=== PATIENT | female | born 1990 | race Caucasian/White ===

== ENCOUNTER → 2017-03-13 | Outpatient (CLI) | payer OTHER | END | disposition home or self-care (01) | LOC: C.PAPS 15:44 | PROVIDERS: ATTEND Obstetrics & Gynecology | DX: Z12.4 Encounter for screening for malignant neoplasm of cervix (principal) ==

== ENCOUNTER 2025-05-15 12:14 | Observation (INO) ==
--- NOTE | 2025-05-15 12:45 | Emergency Department Note ---
Impression & Plan Hydronephrosis, left, Left ureteral stone, Flank pain ED Provider Note NAME: MARIE OCHOA AGE: 34 SEX: F : 1990 ARRIVES VIA: Walk-In INFORMANT: Patient ED PROVIDER(S): Bhavin Chery DO CHIEF COMPLAINT: Left flank pain HPI: Patient is a 34-year-old female with a past medical history of renal colic who presents ER for left flank pain. This started on Monday. A couple days prior to this she notes that she did pass a kidney stone. Flank pain started on Monday and has been getting worse. Admits to some nausea and vomiting. Denies any headache or change in vision. No chest pain or shortness of breath. She denies any dysuria, urgency, or frequency but admits to some pressure when she feels like she has to urinate. She believes she has about a 7 mm stone as she did follow-up with Med. She sees [facility] urology and they referred her in here today as they could not see her. ADDITIONAL HISTORY OBTAINED: Per HPI Chronic Medical/Social Conditions Affecting Care: Per HPI PAST MEDICAL HISTORY:See Below PAST SURGICAL HISTORY:See Below FAMILY HISTORY:See Below SOCIAL HISTORY:See Below HOME MEDICATIONS:See Below ALLERGIES:See Below VITALS:See Below PHYSICAL EXAMINATION: GENERAL: Sitting up in bed, alert, moderate distress holding flank EYE EXAM: normal conjunctiva. OROPHARYNX: no exudate, no erythema, lips, buccal mucosa, and tongue normal and mucous membranes are moist LUNGS: Clear to auscultation. Normal chest wall mechanics HEART: no murmurs, S1 normal and S2 normal ABDOMEN: abdomen soft, non-tender, normo-active bowel sounds, no masses, no rebound or guarding. SKIN: no rashes and no bruising UPPER EXTREMITIES: upper extremities are grossly normal. LOWER EXTREMITIES: No pitting edema. NEURO EXAM: Normal sensorium, cranial nerves II-XII grossly intact, normal speech, no gross weakness of arms, no gross weakness of legs. MEDICAL DECISION MAKING: Patient is a 34-year-old female who presents ER for flank pain. IV was established and blood work was obtained. Labs show leukocytosis 11,000. No significant anemia. BMP with creatinine 1.25. LFTs bilirubin and lipase unremarkable. UA was repeated and showed no white cells to be consistent with an infection. was negative. Patient was given IV fluids, Toradol and morphine. Discussed case with urology and they will stent the patient tomorrow as she has tried oxycodone at home and has been unsuccessful to control the pain. Patient was agreeable. Updated bedside. Discussed case with the hospitalist for further evaluation management treatment. Consults/Care Managements Discussions: Per MDM Triage Nursing notes reviewed. Limited review of prior medical records performed Vital Signs: reviewed and remarkable for tachy Differential diagnosis: Differential diagnoses includes but is not limited to gastritis, peptic ulcer disease, GERD, gallbladder disease, pancreatitis, small bowel obstruction, appendicitis, diverticulitis, hernia, urinary tract infection, torsion, /ectopic (if female), perforation, trauma, infectious. ER treatment provided: See below Diagnostics interpreted by me include EKG and cardiac monitoring as listed below: -Cardiac Monitoring: An order was placed for continuous cardiac monitoring. The monitor shows a rate of 70 with sinus rhythm. -ECG: none -Laboratory studies:Interpreted by me as stated above in MDM and shown below. Imaging studies: Xrays: As interpreted by me:none CTs show: CT abdomen pelvis per my preliminary interpretation showed no obvious bowel obstruction CT of the pelvis per radiologist described above Procedures:none Critical Care: None Past Med/Surg History Problem List (Updated 05/15/25 @ 15:28 by DOREEN Collins) Flank pain Vitamin D deficiency Hydronephrosis, left Left ureteral stone Blood in urine RLQ abdominal pain Vaginal pain Irregular menses Medical History Hx of gout Arthritis GERD (gastroesophageal reflux disease) Thyroid nodule History of anemia Hyposomnia Anxiety and depression Kidney stone Migraine Asthma Surgical History History of cystoscopy History of surgery on lower extremity History of colonoscopy History of esophagogastroduodenoscopy (EGD) History of ERCP History of cholecystectomy History of myringotomy H/O tooth extraction History of ankle surgery S/P hip arthroscopy Family History Aunt Breast cancer Endometriosis Other Diabetes Heart disease No family history of adverse response to anesthesia Denies family history of Ovarian cancer Prostate cancer Myocardial infarction Colorectal cancer Social History (Reviewed 04/16/25 @ 12:19 by ADE Bar[place] Smoking Status: Never smoker Tobacco Type: Cigarettes Second Hand Exposure: No; Do You Dip or Chew Tobacco: No; Hx Alcohol Use: No Hx Substance Use: No Preferred Language: Nauruan Communication Ability: Effective Glove Finisher Required: No Beliefs That Will Affect Care: None Current Living Situation: Family Feels Safe at Home: Yes Assistive Devices: Contacts and Glasses Allergies Allergies Allergy/AdvReac Type Severity Reaction Status Date / Time zaleplon [From Sonata] Allergy Intermediate Headache/ra Verified 05/15/25 15:04 sh triamcinolone [From Nasacort] AdvReac Mild Dizziness Verified 05/15/25 15:04 Home Meds Home Medications Medication Instructions Recorded Confirmed ergocalciferol (vitamin D2) 50 mcg 50 mcg PO QAM 07/05/21 05/15/25 (2,000 unit) capsule bupropion HCl 150 mg 24 hr tablet, 150 mg PO QAM 05/22/24 05/15/25 extended release topiramate 100 mg tablet 100 mg PO HS 05/22/24 05/15/25 eszopiclone 3 mg tablet (Lunesta) 3 mg PO HS 08/16/24 05/15/25 modafinil 200 mg tablet 200 mg PO QAM 08/16/24 05/15/25 dicyclomine 10 mg capsule 10 mg PO TID PRN Pain 03/04/25 05/15/25 celecoxib 200 mg capsule 200 mg PO QAM 05/15/25 05/15/25 duloxetine 60 mg capsule,delayed 60 mg PO QAM 05/15/25 05/15/25 release famotidine 20 mg tablet 20 mg PO BID PRN Nausea and 05/15/25 05/15/25 Heartburn fluticasone propionate 115 2 inh inhalation BID 05/15/25 05/15/25 mcg-salmeterol 21 mcg/actuation HFA inhaler (Advair HFA) gabapentin 100 mg capsule 100 mg PO BID 05/15/25 05/15/25 hydroxyzine pamoate 25 mg capsule 25 mg PO BID 05/15/25 05/15/25 oxycodone 5 mg tablet 5 mg PO Q6H PRN Pain 05/15/25 05/15/25 tamsulosin 0.4 mg capsule (Flomax) 0.4 mg PO HS 05/15/25 05/15/25 Results & Data (ED) Vital Signs Vital Signs - 24 hr 05/15/25 12:26 05/15/25 15:25 05/15/25 15:27 Temperature 36.6 C Temperature Source Temporal Artery Scan Pulse Rate 101 H 72 Pulse Rate [Finger] 73 Respiratory Rate 18 16 16 Respiratory Effort / Characteristics Non-Labored Spontaneous Non-Labored Spontaneous Respiratory Depth Normal Normal Respiratory Pattern Regular Regular Blood Pressure 126/80 Blood Pressure [Right Arm] 125/73 Blood Pressure Mean 95 Blood Pressure Mean [Right Arm] 90 Pulse Oximetry 99 100 100 Oxygen Delivery Method Room Air Room Air Room Air Sepsis Recent Fever Within 48 Hours No Sepsis New/Unexplained Change in Mental Status N/A Sepsis Action Taken by Nursing No Action Required Laboratory Data 05/15/25 12:56 05/15/25 12:56 Lab Results 05/15/25 05/15/25 05/15/25 Range/Units 12:50 12:56 13:49 WBC 11.05 H (4.8-10.8) K/ul RBC 4.56 (4.20-5.40) M/uL Hgb 12.4 (12.0-16.0) g/dl Hct 37.1 (37.0-47.0) % MCV 81.4 (80.0-100.0) fL MCH 27.2 (25.0-34.0) pg MCHC 33.4 (32.0-36.0) g/dL RDW Std Deviation 39.5 (36.4-46.3) fL RDW Coeff of Niurka 13.4 (11.5-14.5) % Plt Count 389 (130-400) K/uL MPV 8.7 L (9.4-12.4) fL Immature Gran % (Auto) 1.0 % Neut % (Auto) 70.7 % Lymph % (Auto) 19.7 % Harlan % (Auto) 6.9 % Eos % (Auto) 1.2 % Baso % (Auto) 0.5 % Neut # (Auto) 7.82 H (1.40-6.50) K/uL Lymph # (Auto) 2.18 (1.20-3.40) K/uL Harlan # (Auto) 0.76 H (0.11-0.59) K/uL Eos # (Auto) 0.13 (0.00-0.50) K/uL Baso # (Auto) 0.05 (0.00-0.20) K/uL Immature Gran # (Auto) 0.11 (0.01-0.20) K/uL Sodium 137 (136-145) mmol/L Potassium 3.6 (3.5-5.1) mmol/L Chloride 104 (98-107) mmol/L Carbon Dioxide 26 (21-32) mmol/L Anion Gap 7 (3-11) BUN 19 (6-23) mg/dl Creatinine 1.25 H (0.6-1.2) mg/dl Est Cr Clr Drug Dosing 67.5 ml/min eGFR 57.64 BUN/Creatinine Ratio 15.2 (10-20) Glucose 94 (70-99(Fasting)) mg/dl Calcium 9.3 (8.6-10.3) mg/dl Total Bilirubin 0.4 (0.2-1.0) mg/dl AST 13 (13-39) U/L ALT 23 (7-52) U/L Alkaline Phosphatase 71 (34-104) U/L Total Protein 8.0 (6.0-8.3) gm/dl Albumin 4.1 (3.4-5.0) gm/dl Globulin 3.9 (2.5-4.0) gm/dl Albumin/Globulin Ratio 1.1 (0.9-2) Lipase 22 (11-82) U/L Urine Color Dark Yellow Yellow Urine Appearance Clear Clear (Clear) Urine pH 6.0 6.5 (4.5-7.5) Ur Specific [place] 1.027 1.014 (1.000-1.030) Urine Protein 1+ H Negative (Negative) Urine Glucose (UA) Negative Negative (Negative) Urine Ketones Trace H Negative (Negative) Urine Blood Trace H Negative (Negative) Urine Nitrite Negative Negative (Negative) Urine Bilirubin Negative Negative (Negative) Urine Urobilinogen Negative Negative (Negative) Ur Leukocyte Esterase 1+ H Trace H (Negative) Urine WBC (Auto) 11-20 H 0-5 (0-5) /hpf Urine RBC (Auto) 6-10 H 0-2 (0-2) /hpf U Hyaline Cast (Auto) 0-2 0-2 (0-2) /lpf U Epithel Cells (Auto) 3-5 H 0-2 (0-2) /hpf Urine Bacteria (Auto) 1+ H None Seen (None Seen) Urine Test Negative (Negative) Urine Comment Administered Medications Discontinued Medications Sodium Chloride (Nss) 1,000 mls @ 999 mls/hr IV .Q1H1M ONE Stop: 05/15/25 13:42 Last Infusion: 05/15/25 14:41 Dose: Infused Documented By: Admin: 05/15/25 13:00 Dose: 999 mls/hr Documented By: Ketorolac Tromethamine (Ketorolac Tromethamine 15 Mg/Ml Vial) 15 mg IV NOW ONE Stop: 05/15/25 12:43 Last Admin: 05/15/25 13:01 Dose: 15 mg Documented By: Morphine Sulfate (Morphine Sulfate 4 Mg/Ml 1 Ml Carp\Vial) 4 mg IV NOW STA Stop: 05/15/25 12:43 Last Admin: 05/15/25 13:00 Dose: 4 mg Documented By: Morphine Sulfate (Morphine Sulfate 4 Mg/Ml 1 Ml Carp\Vial) 4 mg IV NOW STA Stop: 05/15/25 14:58 Last Admin: 05/15/25 15:27 Dose: 4 mg Documented By: TACHO Imaging Data Radiologist's Impression: Abdomen/Pelvis CT 05/15/25 12:[address] WITHOUT CONTRAST CT DOSE: 1425.6 mGy.cm HISTORY: l flank pain TECHNIQUE: Multiaxial CT images of the abdomen and pelvis were performed without contrast. A dose lowering technique was utilized adhering to the principles of ALARA. COMPARISON STUDY: 08/13/2024 FINDINGS: ABDOMEN: Gallbladder is surgically absent. Liver, spleen, pancreas, and adrenal glands have an unremarkable noncontrast appearance. No hydronephrosis at the right kidney. There is mild hydronephrosis at the left kidney. There is an 8 mm calculus proximal left ureter. No other ureteral calculi seen. There are a few tiny calculi in both kidneys. No abdominal aortic aneurysm. Pelvis: Uterus and adnexa are grossly unremarkable. Urinary bladder is decompressed. No bowel inflammation or obstruction. No free fluid or free air. Normal appendix. Stable atrophy of the left psoas muscle. No enlarged adenopathy seen. Osseous structures: No acute osseous findings. IMPRESSION: 8 mm calculus proximal left ureter causes mild left hydronephrosis. ACT 112: Negative or not required by law. The above report was generated using voice recognition software. It may contain grammatical, syntax or spelling errors. Electronically signed by: Ehsan Garcia M.D. 05/15/2025 1:25 PM Discharge Plan Visit Data Chief Complaint: Kidney Stone Stated Complaint: PAIN KIDNEY STONES ED Provider: Bhavin Chery Discharge Problem: Hydronephrosis, left, Left ureteral stone, Flank pain Condition: Fair Forms Stand Alone Forms: [facility] [place] [employer] Prescriptions Prescriptions: No Action ergocalciferol (vitamin D2) 50 mcg (2,000 unit) capsule 50 mcg PO QAM bupropion HCl 150 mg tablet extended release 24 hr 150 mg PO QAM topiramate 100 mg tablet 100 mg PO HS dicyclomine 10 mg capsule 10 mg PO TID PRN (Reason: Pain) celecoxib 200 mg capsule 200 mg PO QAM famotidine 20 mg tablet 20 mg PO BID PRN (Reason: Nausea and Heartburn) gabapentin 100 mg capsule 100 mg PO BID oxycodone 5 mg tablet 5 mg PO Q6H PRN (Reason: Pain) hydroxyzine pamoate 25 mg capsule 25 mg PO BID duloxetine 60 mg capsule,delayed release(DR/EC) 60 mg PO QAM fluticasone propion-salmeterol [Advair HFA] 115-21 mcg/actuation HFA aerosol inhaler 2 inh INHALATION BID tamsulosin [Flomax] 0.4 mg capsule 0.4 mg PO HS Rx Instructions: Start Date 05/14/25 x7 day supply modafinil 200 mg Tablet 200 mg PO QAM eszopiclone [Lunesta] 3 mg Tablet 3 mg PO HS Referrals Referrals: Ned Iqbal MD [Primary Care Provider] -
[2025-05-15] MEDS: MoRPHine SULFATE 4 MG/ML 1 ML CARP\\VIAL IV STA ×2 (13:00→15:27)
[2025-05-15] MEDS: SODIUM CHLORIDE 0.9% 1,000 ML IV ONE (13:00)
[2025-05-15] MEDS: KETOROLAC TROMETHAMINE 15 MG/ML VIAL IV ONE (13:01)
[2025-05-15 13:09] LABS: Hematocrit (blood only) 37.1 % (37.0-47.0); Hemoglobin 12.4 g/dl (12.0-16.0); Immature Granulocytes # (auto) 0.11 K/uL (0.01-0.20); Immature Granulocytes % (auto) 1.0 %; Mean Corpuscular Hemoglobin 27.2 pg (25.0-34.0); Mean Corpuscular Volume 81.4 fL (80.0-100.0); Platelet Count 389 K/uL (130-400); RDW Standard Deviation 39.5 fL (36.4-46.3); Red Blood Count 4.56 M/uL (4.20-5.40); White Blood Count 11.05 K/ul (4.8-10.8)
[2025-05-15 13:15] LABS: Appearance Urine Clear (Clear); Bacteria Urine Automated 1+ (None Seen); Cast Urine Automated 0-2 /lpf (0-2); Glucose Urine UA Negative (Negative)
--- NOTE | 2025-05-15 13:27 | CT Scan Report ---
ABDOMEN AND PELVIS CT WITHOUT CONTRAST CT DOSE: 1425.6 mGy.cm HISTORY: l flank pain TECHNIQUE: Multiaxial CT images of the abdomen and pelvis were performed without contrast. A dose lo wering technique was utilized adhering to the principles of ALARA. COMPARISON STUDY: 08/13/2024 FINDINGS: ABDOMEN: Gallbladder is surgically absent. Liver, spleen, pancreas, and adrenal glands have an unrema rkable noncontrast appearance. No hydronephrosis at the right kidney. There is mild hydronephrosis at the left kidney. There is an 8 mm calculus proximal left ureter. No other ureteral calculi seen. The re are a few tiny calculi in both kidneys. No abdominal aortic aneurysm. Pelvis: Uterus and adnexa are grossly unremarkable. Urinary bladder is decompressed. No bowel inflamm ation or obstruction. No free fluid or free air. Normal appendix. Stable atrophy of the left psoas mu scle. No enlarged adenopathy seen. Osseous structures: No acute osseous findings. IMPRESSION: 8 mm calculus proximal left ureter causes mild left hydronephrosis. ACT 112: Negative or not required by law. The above report was generated using voice recognition software. It may contain grammatical, syntax o r spelling errors. Electronically signed by: Ehsan Garcia M.D. 05/15/2025 1:25 PM
[2025-05-15 13:28] LABS: Alanine Aminotransferase 23.0 U/L (7-52); Albumin Globulin Ratio 1.1 (0.9-2); Alkaline Phosphatase 71.0 U/L (34-104); Anion Gap 7.0 (3-11); Bilirubin,Total 0.4 mg/dl (0.2-1.0); Blood Urea Nitrogen 19.0 mg/dl (6-23); Calcium 9.3 mg/dl (8.6-10.3); Carbon Dioxide 26.0 mmol/L (21-32); Chloride 104.0 mmol/L (98-107); Creatinine Clr Calc Pharmacy 67.5 ml/min; Globulin 3.9 gm/dl (2.5-4.0); Glucose 94.0 mg/dl (70-99(Fasting)); Lipase 22.0 U/L (11-82); Potassium 3.6 mmol/L (3.5-5.1); Sodium 137.0 mmol/L (136-145); Total Protein 8.0 gm/dl (6.0-8.3)
[2025-05-15 14:22] LABS: Appearance Urine Clear (Clear); Bacteria Urine Automated None Seen (None Seen); Cast Urine Automated 0-2 /lpf (0-2); Epithelial Cell Urine Auto 0-2 /hpf (0-2); Glucose Urine UA Negative (Negative); RBC Urine Automated 0-2 /hpf (0-2); WBC Urine Automated 0-5 /hpf (0-5)
--- NOTE | 2025-05-15 15:29 | History & Physical Report ---
Date of Service May 15, 2025 Assessment & Plan (1) Left ureteral stone: (2) Hydronephrosis, left: (3) Asthma: Plan 34 y/o with hx nephrolithiasis admitted with obstructing L ureteral stone, having worsened despite conservative management CT abd/pelvis - 8 mm stone prox L ureter with mild L hydronephrosis Urologist consulted and plans cystoscopy with stenting tomorrow Does not appear infected based on negative UA -IV fluids -flomax -avoiding more IV toradol since Cr up to 1.2, acetaminophen, morphine 2-4 mg IV if necessary for pain control -IV antiemetics if needed -NPO after midnight -follow up with Dr. Harris for nephrolithiasis - reviewed her last clinic note and the main risk factor is low fluid intake / urine output, advised normal dietary calcium and increased oral fluids for now # Asthma - not in exacerbation -continue advair, recent dose increase Continue other home meds for mood disorder, arthritis pain, insomnia: gabapentin topamax duloxetine, bupropion lunesta History of Present Illness Chief Complaint: Left flank pain Primary Care Provider: Ned Iqbal MD 34 y/o with nephrolithiasis came in to ED with renal colic. L flank pain started Monday. Seen at [facility], diagnosed with stone, and treated medically. Pain got worse today despite oral pain medicine so came in to ED. The ED consulted Urology who plans stenting procedure tomorrow. Pain is in left flank and severe. She had one emesis yesterday. Unrelieved by oral pain meds, but improved after 4 mg IV morphine. Not currently nauseated. Per my chart review: In 07/18 had laser lithotripsy of 10 mm L stone. She says no pain that time, presented with hematuria only Allergies Allergy/AdvReac Type Severity Reaction Status Date / Time zaleplon [From Sonata] Allergy Intermediate Headache/ra Verified 05/15/25 15:04 sh triamcinolone [From Nasacort] AdvReac Mild Dizziness Verified 05/15/25 15:04 Home Medications Medication Instructions Recorded Confirmed Type ergocalciferol (vitamin D2) 50 mcg 50 mcg PO QAM 07/05/21 05/15/25 History (2,000 unit) capsule bupropion HCl 150 mg 24 hr tablet, 150 mg PO QAM 05/22/24 05/15/25 History extended release topiramate 100 mg tablet 100 mg PO HS 05/22/24 05/15/25 History eszopiclone 3 mg tablet (Lunesta) 3 mg PO HS 08/16/24 05/15/25 History modafinil 200 mg tablet 200 mg PO QAM 08/16/24 05/15/25 History dicyclomine 10 mg capsule 10 mg PO TID PRN Pain 03/04/25 05/15/25 History celecoxib 200 mg capsule 200 mg PO QAM 05/15/25 05/15/25 History duloxetine 60 mg capsule,delayed 60 mg PO QAM 05/15/25 05/15/25 History release famotidine 20 mg tablet 20 mg PO BID PRN Nausea and 05/15/25 05/15/25 History Heartburn fluticasone propionate 115 2 inh inhalation BID 05/15/25 05/15/25 History mcg-salmeterol 21 mcg/actuation HFA inhaler (Advair HFA) gabapentin 100 mg capsule 100 mg PO BID 05/15/25 05/15/25 History hydroxyzine pamoate 25 mg capsule 25 mg PO BID 05/15/25 05/15/25 History oxycodone 5 mg tablet 5 mg PO Q6H PRN Pain 05/15/25 05/15/25 History tamsulosin 0.4 mg capsule (Flomax) 0.4 mg PO HS 05/15/25 05/15/25 History Past Med/Surg History Problem List Flank pain Vitamin D deficiency Hydronephrosis, left Left ureteral stone Blood in urine RLQ abdominal pain Vaginal pain Irregular menses Medical History Hx of gout Arthritis GERD (gastroesophageal reflux disease) Thyroid nodule biopsy x 3 (benign) History of anemia Hyposomnia idiopathic Anxiety and depression Kidney stone Migraine Asthma used rescue inhaler last>last month Surgical History History of cystoscopy Cystoscopy, left retrograde pyelogram with radiographic interpretation, left ureteral stent placement History of surgery on lower extremity right + hardware removed History of colonoscopy History of esophagogastroduodenoscopy (EGD) History of ERCP History of cholecystectomy History of myringotomy x 2 H/O tooth extraction History of ankle surgery right ankle scar tissue removed S/P hip arthroscopy left x 2 (labrum repair) right x 1 (labrum repair) Family History Aunt Breast cancer Endometriosis maternal Other Diabetes Heart disease No family history of adverse response to anesthesia Denies family history of Ovarian cancer Prostate cancer Myocardial infarction Colorectal cancer Social History Smoking Status: Never smoker Tobacco Type: Cigarettes Second Hand Exposure: No; Do You Dip or Chew Tobacco: No; Hx Alcohol Use: No Hx Substance Use: No Preferred Language: Tuvaluan Communication Ability: Effective Financial Representative Required: No Beliefs That Will Affect Care: None Current Living Situation: Family Feels Safe at Home: Yes Assistive Devices: Contacts and Glasses Review of Systems 2 Review of Systems: All systems reviewed & are unremarkable except as noted in HPI & below Physical Exam 2 Physical Exam: Last 24h vitals reviewed GEN: no acute distress, sitting in bed HEENT: pupils equal, sclerae anicteric, moist MM RESP: normal WOB, CTAB CV: reg no mrg ABD: soft/nt/nd +BT. Some L CVA tenderness : no burks SKIN: warm and dry, no generalized rashes NEURO: AOx person, place, and situation. Face symmetric, speech normal, moves 4 ext spontaneously and equally Results & Data Results & Data Vital Signs (Past 12 Hours) Vital Signs Temp Pulse Resp BP Pulse Ox O2 Del Method 05/15/25 12:26 36.6 C 101 H 18 126/80 99 Room Air Laboratory Results 05/15/25 12:56 05/15/25 12:[address] LE CT abd/pelvis - 8 mm stone prox L ureter with mild L hydronephrosis PG Care Time/CCT Total # of Minutes Spent Total Time Spent with Patient: Total time spent is greater than 50% in coordination of care (as documented) at patient's floor/unit and/or counseling patient: Coding Level of Care Code 55032 INT INP/OBS CARE 2/55MIN Diagnoses Left ureteral stone N20.1 Hydronephrosis, left N13.30 Asthma J45.909
--- NOTE | 2025-05-15 15:39 | Urology Consultation ---
Date of Consultation May 15, 2025 Assessment & Plan (1) Left ureteral stone: (2) Hydronephrosis, left: (3) Flank pain: Plan 34 yo female recently diagnosed with an obstructing left ureteral stone at an outlying facility who failed outpatient management and presented to the ED today with severe left flank pain. CT abdomen pelvis demonstrated an obstructing 8 mm proximal left ureteral stone. She is admitted to medicine service for pain management. She is afebrile with stable vitals Labs show WBCs 11.05, hemoglobin 12.4, creatinine 1.25 Urine culture pending We did discuss acute stone management with cystoscopy and stent placement. Ureteral stents were discussed as well as postoperative issues and pain management. She is aware he second procedure would be needed for stone treatment. Risks/benefits discussed. All questions were answered. At the present time, she is stable and pain is controlled. She is not appropriately NPO, therefore we will plan to make NPO at midnight for reassessment in the morning. Continue supportive care and pain management as needed. Urology will follow Please contact our service urgently if patient develops any fevers or acute changes as this would necessitate urgent surgical invention. History of Present Illness History of Present Illness 34-year-old female who presented to the ED today for acute left flank pain. Patient reported the pain started on Monday. She was seen in the ED at [facility] and was diagnosed with an obstructing kidney stone. She was discharged for outpatient management. She reports ongoing pain which worsened today despite oral pain medication. In the ED she was afebrile, mildly tachycardic, normotensive. Labs showing mild leukocytosis of 11 and creatinine of 1.25. Urinalysis showed trace blood, negative nitrite, 1+ LE, 1120 WBC, 610 RBC, 3-5 epithelial cells, 1+ bacteria. Repeat urinalysis showed trace LE but otherwise negative. CT abdomen pelvis was obtained and shows an 8 mm proximal left ureteral stone with mild left hydronephrosis there were also a few tiny stones in both kidneys. ED course included IV fluids, Toradol, and morphine. She is being admitted to medicine service. Patient was seen at bedside in ED. Appears comfortable at present. No acute distress. Denies fever, chills, nausea, vomiting. Voiding without issue. Reports she was taking oxycodone at home and was having persistent/worsening pain despite medication. She did eat a few bites of salad around 11:30 AM. She has a history of kidney stones with prior intervention. Has followed with Dr. Ahn in the past. Allergies Allergy/AdvReac Type Severity Reaction Status Date / Time zaleplon [From Sonata] Allergy Intermediate Headache/ra Verified 05/15/25 15:04 triamcinolone [From Nasacort] AdvReac Mild Dizziness Verified 05/15/25 15:04 Home Medications Medication Instructions Recorded Confirmed Type ergocalciferol (vitamin D2) 50 mcg 50 mcg PO QAM 07/05/21 05/15/25 History (2,000 unit) capsule bupropion HCl 150 mg 24 hr tablet, 150 mg PO QAM 05/22/24 05/15/25 History extended release topiramate 100 mg tablet 100 mg PO HS 05/22/24 05/15/25 History eszopiclone 3 mg tablet (Lunesta) 3 mg PO HS 08/16/24 05/15/25 History modafinil 200 mg tablet 200 mg PO QAM 08/16/24 05/15/25 History dicyclomine 10 mg capsule 10 mg PO TID PRN Pain 03/04/25 05/15/25 History celecoxib 200 mg capsule 200 mg PO QAM 05/15/25 05/15/25 History duloxetine 60 mg capsule,delayed 60 mg PO QAM 05/15/25 05/15/25 History release famotidine 20 mg tablet 20 mg PO BID PRN Nausea and 05/15/25 05/15/25 History Heartburn fluticasone propionate 115 2 inh inhalation BID 05/15/25 05/15/25 History mcg-salmeterol 21 mcg/actuation HFA inhaler (Advair HFA) gabapentin 100 mg capsule 100 mg PO BID 05/15/25 05/15/25 History hydroxyzine pamoate 25 mg capsule 25 mg PO BID 05/15/25 05/15/25 History oxycodone 5 mg tablet 5 mg PO Q6H PRN Pain 05/15/25 05/15/25 History tamsulosin 0.4 mg capsule (Flomax) 0.4 mg PO HS 05/15/25 05/15/25 History Patient History Medical History Hx of gout Arthritis GERD (gastroesophageal reflux disease) Thyroid nodule History of anemia Hyposomnia Anxiety and depression Kidney stone Migraine Asthma Surgical History History of cystoscopy History of surgery on lower extremity History of colonoscopy History of esophagogastroduodenoscopy (EGD) History of ERCP History of cholecystectomy History of myringotomy H/O tooth extraction History of ankle surgery S/P hip arthroscopy Family History Aunt Breast cancer Endometriosis Other Diabetes Heart disease No family history of adverse response to anesthesia Denies family history of Ovarian cancer Prostate cancer Myocardial infarction Colorectal cancer Social History Smoking Status: Never smoker Tobacco Type: Cigarettes Second Hand Exposure: No; Do You Dip or Chew Tobacco: No; Hx Alcohol Use: No Hx Substance Use: No Preferred Language: Luxembourgish Communication Ability: Effective Paper Cleaner Required: No Beliefs That Will Affect Care: None Current Living Situation: Family Feels Safe at Home: Yes Assistive Devices: Contacts and Glasses Review of Systems Review of Systems: All systems reviewed & are unremarkable except as noted in HPI & below Physical Exam Constitutional: no acute distress Respiratory: no respiratory distress and no labored breathing Musculoskeletal: Head/Neck/Chest: normocephalic Skin: No visible rashes or lesions to exposed skin areas Neurologic: moves all extremities and awake Psychiatric: A+Ox3, euthymic affect Results & Data Vital Signs (Past 12 Hours) Vital Signs Temp Pulse Resp BP Pulse Ox O2 Del Method 05/15/25 12:26 36.6 C 101 H 18 126/80 99 Room Air PG Care Time/CCT Total # of Minutes Spent Total Time Spent with Patient: Total time spent is greater than 50% in coordination of care (as documented) at patient's floor/unit and/or counseling patient: Coding Level of Care Code 29293 IN/OBS CONSULT LVL 3,45M Diagnoses Left ureteral stone N20.1 Hydronephrosis, left N13.30 Flank pain R10.9
[2025-05-15] MEDS ORDERED: MAGNESIUM HYDROXIDE SUSP 30 ML UDC PO PRN (17:19)
[2025-05-15] MEDS ORDERED: POLYETHYLENE (MIRALAX) 17 GM PACK PO PRN (17:19)
[2025-05-15] MEDS ORDERED: FAMOTIDINE 20 MG TAB PO PRN (17:19)
[2025-05-15] MEDS ORDERED: MoRPHine SULFATE 2 MG/ML CARP IV PRN (17:19)
[2025-05-15] MEDS ORDERED: ONDANSETRON INJ 2 MG/ML 2 ML VIAL IV PRN (17:19)
[2025-05-15] MEDS: SODIUM CHLORIDE 0.9% 1,000 ML IV SCH (17:44)
[2025-05-15] MEDS: MoRPHine SULFATE 4 MG/ML 1 ML CARP\\VIAL IV PRN (19:15)
[2025-05-15] MEDS: TOPIRAMATE 100 MG TAB PO SCH (19:19)
[2025-05-15] MEDS: TAMSULOSIN HCL 0.4 MG CAP PO SCH (19:20)
[2025-05-15] MEDS: GABAPENTIN 100 MG CAP PO SCH (19:20)
[2025-05-15] MEDS: ESZOPICLONE 1 MG TAB PO SCH (20:04)
[2025-05-15] MEDS: ALUMINUM/MAGNESIUM SUSP 30 ML UDC PO PRN (23:27)
[2025-05-16] MEDS: FLUTICASONE/VILANTEROL 200/25MCG 14 PUFFS/INHALER INH SCH (09:09)
--- NOTE | 2025-05-16 13:19 | Urology Progress Note ---
Date of Service May 16, 2025 Assessment & Plan (1) Flank pain: (2) Left ureteral stone: (3) Hydronephrosis, left: Plan 34 yo female recently diagnosed with an obstructing left ureteral stone at an outlying facility who failed outpatient management and presented to the ED with severe left flank pain. CT abdomen pelvis demonstrated an obstructing 8 mm proximal left ureteral stone. She is admitted to medicine service for pain management. She is afebrile with stable vitals Labs on admit showed WBCs 11.05, hemoglobin 12.4, creatinine 1.25 Urine culture preliminary no growth We discussed acute stone management with cystoscopy and stent placement. Ureteral stents were discussed as well as postoperative issues and pain management. She is aware he second procedure would be needed for stone treatment. Risks/benefits discussed. All questions were answered. Will proceed to the OR today for cystoscopy, left retrograde pyelogram, left ureteral stent placement. Risks and benefits to be reviewed with patient by Dr. Odom. Keep NPO. Will cover with Ancef preoperatively. Urology will follow. Attending note: Patient independently assessed, examined, interviewed, and evaluated. Agree with note as above. Patient's vitals and labs were all reviewed. Pertinent values in the HPI and plan section. Imaging was reviewed interpreted by myself. Agree with read. Vitals were reviewed. Discussed findings extensively with patient and family. Reviewed with nurse practitioner as well as consulting physicians/team. Patient's complicated medical and surgical history was reviewed and summarized above. Patient's surgical, medical, social, and family history were all reviewed with pertinent values as above. Discussed patient's current diagnosis as well as concerns and issues. Reviewed different options moving forward. Discussed potential risks and benefits as well as possible options and concerns. Reviewed potential surgical options and interventions. Discussed potential issues and concerns related to intervention. Risk and benefits were discussed e xtensively with patient and any available family. Discussed potential risks related to anesthesia. Discussed risks of bleeding infection and injury. Patient with significant obstruction of the proximal ureter with severe. Patient found to have significant obstructing stone. Blood work and imaging and lab work were all reviewed. Agree with read. Discussed options for conservative measure and maximum expulsion medical therapy and symptom controlled. Discussed ESWL. Discussed Ureteroscopy with extraction and/or laser lithotripsy. Risks and benefits were discussed. Stone free rates were also discussed as well as possibility of multiple procedures. Ureteral stents were discussed as well as post-operative issues and pain management. All questions were answered. Risks and benefits discussed at length for procedure. These include bleeding, infection, injury to surrounding tissues or organs, and risks associated with anesthesia. Patient states understanding and agrees to proceed. Will sign consent and schedule. Plan for cystoscopy with left stent placement Admission and Anticipated Discharge Date Admission Date: May 15, 2025 Subjective Patient seen at bedside this morning. She is awake and resting bed on arrival. No acute distress. Managing pain with medication. Has been NPO. Review of Systems Review of Systems: All systems reviewed & are unremarkable except as noted in HPI & below Constitutional: as per Subjective / HPI Genitourinary: as per Subjective / HPI Physical Exam Physical Exam: General: Alert and oriented x 3 in no acute distress. Patient is well nourished and well kept. HEENT: Normocephalic Atraumatic. Inspection normal. Cranial Nerves 2-12 Grossly intact. Nares are clear. Neck is supple. Normal inspection of face. Normal inspection of neck. Neurologic: No deficits on inspection. Baseline for motor function and sensory. Psychologic: Normal affect. Respiratory: Nonlabored. No use of accessory muscles. No tachypnea or dyspnea. Cardiovascular: No tachycardia Skin: Patrick and Dry. No rashes or visible lesions. Extremities: Moving without issues. No motor deficits on inspection Lymphatics: No edema Abdomen: Soft Non-distended. Obese. No rebound or guarding. Constitutional: no acute distress Respiratory: no respiratory distress and no labored breathing Skin: No visible rashes or lesions to exposed skin areas Neurologic: moves all extremities and awake Psychiatric: A+Ox3, euthymic affect Results & Data Vital Signs (Past 12 Hours) Vital Signs Temp Pulse Resp BP Pulse Ox O2 Del Method 05/16/25 12:43 69 15 108/73 98 Room Air 05/16/25 07:54 36.6 C 74 15 103/68 97 Room Air PG Care Time/CCT Total # of Minutes Spent Total Time Spent with Patient: Total time spent is greater than 50% in coordination of care (as documented) at patient's floor/unit and/or counseling patient: Coding Level of Care Code 71076 SUB INP/OBS CARE 3/50MIN Diagnoses Flank pain R10.9 Left ureteral stone N20.1 Hydronephrosis, left N13.30
[2025-05-16] MEDS ORDERED: MIDAZOLAM HCL 1 MG/ML 2ML VIAL ONE (13:51)
[2025-05-16] MEDS ORDERED: LIDOCAINE 2% 2 ML VIAL/AMP(20MG/ML) INFIL ONE ×2 (13:52)
[2025-05-16] MEDS ORDERED: ATROPINE SULFATE 0.1 MG/ML 10ML SYR IV PRN (13:53)
[2025-05-16] MEDS ORDERED: ONDANSETRON INJ 2 MG/ML 2 ML VIAL IV PRN (13:53)
[2025-05-16] MEDS ORDERED: HYDROmorphone INJ 1 MG/ML SYRINGE IV PRN (13:53)
[2025-05-16] MEDS ORDERED: PROPOFOL IV EMULSION 10 MG/ML 20 ML VIAL IV ONE (13:57)
--- NOTE | 2025-05-16 14:41 | Operative Report ---
PG Post Operative Report Pre & Post Diagnosis Operation Date: 05/16/25 13:10 Pre-Op Diagnosis: Left Ureteral Stone Post-Op Diagnosis: Left Ureteral Stone I identified the patient and participated in the time-out.: Yes Procedure Operation Date: 05/16/25 13:10 Actual Procedures Cystoscopy with Left Retrograde Pyelogram and Left Ureteral Stent Placement(Left ) - Familia Simon MD Surgeon Chad Odom, II, DO Manager Community None Estimated Blood Loss 0 Findings Consistent with Post-Op Diagnosis Stent placed in good position. Specimens None Drains 6 Fr x 24 cm Left Anesthesia Type MAC Complications none Disposition Disposition: Recovery Room Indications Patient with obstruction. Risks and benefits discussed at length. Description of Procedure Patient was consented and brought back to the operating room. Patient was placed under anesthesia in the supine position and moved to the dorsal lithotomy position. Patient was prepped and draped in the regular sterile fashion. A time out was completed. A 30degree Cystoscope was placed into the bladder and the entire bladder was examined. The UO's were identified. The UO was cannulized with a catheter and a retrograde pyelogram was completed. Stone was severely obstructing the proximal ureter. A wire was then placed. Some manipulation was needed to enter into the kidney. With the wire in place, a 6 Fr Double J stent was placed. It was confirmed with fluoroscopy. With the stent in place, the bladder was emptied. The scope was removed. The patient was cleaned, aroused from anesthesia, and transferred to the pacu in stable condition having tolerated the procedure well with no complications. I was present and participated in all aspects of the procedure. The patient will be monitored in the PACU until transferred. Plan to set up stone treatment in 1-2 weeks. I attest to the content of the Intraoperative Record and any orders documented therein. Any exceptions are noted below.
--- NOTE | 2025-05-16 15:20 | Anesthesiology Progress Note ---
Date of Service May 16, 2025 Anesthesia Post Procedure Vital Signs Vital Signs: Temp Pulse Pulse Pulse Resp BP BP 05/16/25 15:10 36.5 C 64 18 05/16/25 15:00 68 18 05/16/25 14:50 71 22 05/16/25 14:42 36.1 C L 100 H 20 05/16/25 13:25 36.6 C 72 18 05/16/25 12:43 69 15 108/73 05/16/25 07:54 36.6 C 74 15 103/68 05/15/25 22:38 36.3 C L 73 14 112/75 05/15/25 17:27 36.6 C 72 16 05/15/25 16:54 80 18 121/76 05/15/25 16:05 99 H 05/15/25 16:00 88 18 05/15/25 15:27 72 16 05/15/25 15:25 73 16 BP Pulse Ox O2 Del Method O2 Flow Rate 05/16/25 15:10 100/68 100 Nasal Cannula 2 05/16/25 15:00 112/48 L 92 Room Air 05/16/25 14:50 105/57 L 96 Room Air 05/16/25 14:42 109/59 L 95 Oxymask 8 05/16/25 13:25 112/56 L 100 Room Air 05/16/25 12:43 98 Room Air 05/16/25 07:54 97 Room Air 05/15/25 22:38 96 Room Air 05/15/25 17:27 111/69 98 Room Air 05/15/25 16:54 99 Room Air 05/15/25 16:05 05/15/25 16:00 121/76 96 Room Air 05/15/25 15:27 100 Room Air 05/15/25 15:25 125/73 100 Room Air Pain Intensity Left Flank: Pain Intensity: 6 Left Abdomen: Pain Intensity: 4 Transfer of Care Handoff Completed per policy Notes Mental Status: alert / awake / arousable and participated in evaluation Patient Amnestic to Procedure: Yes Nausea / Vomiting: adequately controlled Pain: adequately controlled Airway Patency, RR, SpO2: stable & adequate BP & HR: stable & adequate Hydration State: stable & adequate Anesthetic Complications: no major complications apparent and Pt Satisfied with anesthetic care
--- NOTE | 2025-05-16 15:48 | Discharge Summary ---
Discharge Summary Date of Service May 16, 2025 Principal Dx & Hospital Course #1 = Principal Diagnosis (1) Left ureteral stone: (2) Hydronephrosis, left: (3) Asthma: Plan 34 y/o with hx nephrolithiasis admitted with obstructing L ureteral stone, having worsened despite conservative management #left ureteral stone CT abd/pelvis - 8 mm stone prox L ureter with mild L hydronephrosis. Urologist consulted -cystoscopy with stent placement with Dr. Lugo 05/16. Will need follow up for stone treatment. UA without signs of infection. Continue flomax, prn oxybuytinin prescribed. -follow up with Dr. Harris for nephrolithiasis - reviewed her last clinic note and the main risk factor is low fluid intake / urine output, advised normal dietary calcium and increased oral fluids for now # Asthma - not in exacerbation -continue advair, recent dose increase Continue other home meds for mood disorder, arthritis pain, insomnia: gabapentin topamax duloxetine, bupropion lunesta dispo: discharge to home with urology follow up Notes For Next Care Provider routine nephrology follow up Admission HPI Per Admitting Provider 34 y/o with nephrolithiasis came in to ED with renal colic. L flank pain started Monday. Seen at [facility], diagnosed with stone, and treated medically. Pain got worse today despite oral pain medicine so came in to ED. The ED consulted Urology who plans stenting procedure tomorrow. Pain is in left flank and severe. She had one emesis yesterday. Unrelieved by oral pain meds, but improved after 4 mg IV morphine. Not currently nauseated. Per my chart review: In 07/18 had laser lithotripsy of 10 mm L stone. She says no pain that time, presented with hematuria only Discharge Exam General: NAD, VS as above Resp: normal respiratory effort, lungs clear to auscultation CV: RRR, no murmur, Abd: normal bowel sounds, non tender, Extremities: Moves all extremities, no edema Neuro: A&O x3, Skin: intact, no lesions noted Discharge Plan Discharge Items Patient Disposition: Home - Self-Care Reason For Visit: URETERAL STONE Discharge Diagnosis: kidney stone Condition on Discharge: Fair Activity: Resume your previous activity Non-emergency contact: Primary Care Provider and Urologist Call non-emergency contact if: you have any medication questions, your pain is not controlled and your temperature is above 101 Follow-up/Referrals: Chad Odom, [Physician] - (follow up for stone treatment ) Ned Iqbal MD [Primary Care Provider] - Diet: Regular Addtl Attending Provider Instructions: Ms.. Mullins, You were hospitalized after having back pain found to be from kidney stones. You were seen by urology and taken to the OR to have a stent placed on 05/[address] Odom. Your urine was also concerning for infection so you have been started on antibiotics, these will be continued at discharge. You will need to follow up with urology for stent removal and stone treatment. Medication Changes/Recommendations: * Continue flomax daily while stent in place - this is to help with easier passage of urine * Pyridium as needed for pain with urination - this can cause your urine/feces to be discolored/orange * Pain control - can use tylenol and ibuprofen over the counter and oxycodone prn * oxybutyin was sent in as needed for bladder spasm It is normal to still have discomfort in the flank area while the stent is in place, this pain may be worse with movement. Blood tinged urine can also be common. If you are having persistent dark bloody urine or thick bloody urine for >8 hours please contact your urologist. It is important that you are staying hydrated while the stent is in place. The urology office should be contacting you to schedule and appointment. If you do not hear from them by Monday please contact them at [phone] Please contact the urologist if you have any uncontrolled pain, fevers > 100F, or inability to urinate. please follow up with Dr. Harris to continue to work to prevent further kidney stones. Return to ER with new or worsening symptoms. Pending Studies at Discharge: No Stand-Alone Forms: [employer], Smoking Cessation Medications and DC Order Prescriptions: New oxybutynin chloride 5 mg tablet 5 mg PO Q12H PRN (Reason: bladder spasms) Qty: 10 0RF Continued ergocalciferol (vitamin D2) 50 mcg (2,000 unit) capsule 50 mcg PO QAM bupropion HCl 150 mg tablet extended release 24 hr 150 mg PO QAM topiramate 100 mg tablet 100 mg PO HS dicyclomine 10 mg capsule 10 mg PO TID PRN (Reason: Pain) celecoxib 200 mg capsule 200 mg PO QAM famotidine 20 mg tablet 20 mg PO BID PRN (Reason: Nausea and Heartburn) gabapentin 100 mg capsule 100 mg PO BID oxycodone 5 mg tablet 5 mg PO Q6H PRN (Reason: Pain) hydroxyzine pamoate 25 mg capsule 25 mg PO BID duloxetine 60 mg capsule,delayed release(DR/EC) 60 mg PO QAM fluticasone propion-salmeterol [Advair HFA] 115-21 mcg/actuation HFA aerosol inhaler 2 inh INHALATION BID tamsulosin [Flomax] 0.4 mg capsule 0.4 mg PO HS Rx Instructions: Start Date 05/14/25 x7 day supply modafinil 200 mg Tablet 200 mg PO QAM eszopiclone [Lunesta] 3 mg Tablet 3 mg PO HS Discharge Orders: Discharge Order (Routine); Ordered 05/16/25 Ordered By: Roseann Marks Admission Data Admit Date/Time: 05/15/25 16:08 Attending Provider: Diana Daugherty Admit Provider: Diana Daugherty Primary Care Provider: Ned Iqbal Other Providers: Joe Healy Hospital Stay Data Consultations 05/15/25 15:21 ED Decision to Admit Stat Procedures Performed Operation Date: 05/16/25 13:10 Actual Procedures p Cystoscopy, Left Retrograde Pyelogram, Left Ureteral Stent Placement(Left) - Familia Simon MD Diagnostic Imagining Performed Abdomen/Pelvis CT 05/15/25 12:[address] WITHOUT CONTRAST CT DOSE: 1425.6 mGy.cm HISTORY: l flank pain TECHNIQUE: Multiaxial CT images of the abdomen and pelvis were performed without contrast. A dose lowering technique was utilized adhering to the principles of ALARA. COMPARISON STUDY: 08/13/2024 FINDINGS: ABDOMEN: Gallbladder is surgically absent. Liver, spleen, pancreas, and adrenal glands have an unremarkable noncontrast appearance. No hydronephrosis at the right kidney. There is mild hydronephrosis at the left kidney. There is an 8 mm calculus proximal left ureter. No other ureteral calculi seen. There are a few tiny calculi in both kidneys. No abdominal aortic aneurysm. Pelvis: Uterus and adnexa are grossly unremarkable. Urinary bladder is decompressed. No bowel inflammation or obstruction. No free fluid or free air. Normal appendix. Stable atrophy of the left psoas muscle. No enlarged adenopathy seen. Osseous structures: No acute osseous findings. IMPRESSION: 8 mm calculus proximal left ureter causes mild left hydronephrosis. ACT 112: Negative or not required by law. The above report was generated using voice recognition software. It may contain grammatical, syntax or spelling errors. Electronically signed by: Ehsan Garcia M.D. 05/15/2025 1:25 PM Pending Results Patient Have Any Pending Studies at Discharge: No Discharge Instructions Given to Patient (Per Discharging Provider) Ms.. Mullins, You were hospitalized after having back pain found to be from kidney stones. You were seen by urology and taken to the OR to have a stent placed on 05/[address] Odom. Your urine was also concerning for infection so you have been started on antibiotics, these will be continued at discharge. You will need to follow up with urology for stent removal and stone treatment. Medication Changes/Recommendations: * Continue flomax daily while stent in place - this is to help with easier passage of urine * Pyridium as needed for pain with urination - this can cause your urine/feces to be discolored/orange * Pain control - can use tylenol and ibuprofen over the counter and oxycodone prn * oxybutyin was sent in as needed for bladder spasm It is normal to still have discomfort in the flank area while the stent is in place, this pain may be worse with movement. Blood tinged urine can also be common. If you are having persistent dark bloody urine or thick bloody urine for >8 hours please contact your urologist. It is important that you are staying hydrated while the stent is in place. The urology office should be contacting you to schedule and appointment. If you do not hear from them by Monday please contact them at [phone] Please contact the urologist if you have any uncontrolled pain, fevers > 100F, or inability to urinate. please follow up with Dr. Harris to continue to work to prevent further kidney stones. Return to ER with new or worsening symptoms. Total Time Total Time Spent Total Time Spent (In Minutes): Time spent day of discharge 36 minutes including direct patient care, medication reconciliation, documentation, review of labs and images, and coordination of care. Coding Level of Care Code 43816 INP/OBS DISCH >30 MIN Diagnoses Left ureteral stone N20.1 Hydronephrosis, left N13.30 Asthma J45.909
[2025-05-16] MEDS: ACETAMINOPHEN 325 MG TAB PO PRN (19:28)
--- NOTE | 2025-05-17 07:24 | Fluoroscopy Report ---
INTRAOPERATIVE RADIOGRAPHS CLINICAL HISTORY: Left ureteral stent placement. Fluoro time: 38 seconds Ka,r: 11.56 mGy FINDINGS: 4 spot fluoroscopic views of the left abdomen are correlated with abdominal CT dated 025. Contrast in the left renal collecting system shows hydronephrosis. The images show the proximal and distal ends of a left ureter stent in appropriate position. There is a large calculus along the c ourse of the proximal stent. IMPRESSION: Intraoperative images from a left ureteral stent placement procedure as above. Electronically signed by: Rg Gomez M.D. 05/17/2025 7:22 AM
[2025-05-17] MEDS: ACETAMINOPHEN 325 MG TAB PO SCH (09:38)
[2025-05-17] MEDS ORDERED: MoRPHine SULFATE 4 MG/ML 1 ML CARP\\VIAL IV PRN (13:18)
[2025-05-17] MEDS: CALCIUM CARBONATE 500 MG CHEWABLE TAB PO PRN (13:41)
[2025-05-17] MEDS: MoRPHine SULFATE 2 MG/ML CARP IV STA (13:41)
[2025-05-17] MEDS: PHENAZOPYRIDINE HCL 100 MG TAB PO SCH (14:41)
[2025-05-17] MEDS ORDERED: KETOROLAC 30 MG/ML VIAL IV PRN (18:20)
--- NOTE | 2025-05-17 18:24 | Hospitalist Progress Note ---
Date of Service May 17, 2025 Assessment & Plan (1) Left ureteral stone: (2) Hydronephrosis, left: (3) Asthma: Plan 34 y/o with hx nephrolithiasis admitted with obstructing L ureteral stone, having worsened despite conservative management #left ureteral stone CT abd/pelvis - 8 mm stone prox L ureter with mild L hydronephrosis. Urologist consulted -cystoscopy with stent placement with Dr. Lugo 05/16. Will need follow up for stone treatment. UA without signs of infection. -having ureteral stent pain uncontrolled by oral meds thus far still requiring doses of IV morphine -increased oxycodone to 10 mg and decreased interval -added oxybutynin, pyridium and toradol -BMP in AM to make sure Cr coming down -discharge once sx controlled on po meds -follow up with Dr. Harris for nephrolithiasis - reviewed her last clinic note and the main risk factor is low fluid intake / urine output, advised normal dietary calcium and increased oral fluids for now # Asthma - not in exacerbation -continue advair, recent dose increase Continue other home meds for mood disorder, arthritis pain, insomnia: gabapentin topamax duloxetine, bupropion lunesta dispo: discharge to home with urology follow up Admission and Anticipated Discharge Date Admission Date: May 15, 2025 Subjective continues with severe L flank pain and has some dysuria and hematuria but no clots transitioned to orals this AM but still needed IV morphine in afternoon Physical Exam Physical Exam: Last 24h vitals reviewed GEN: lying in bed and looks comfortable and a little groggy HEENT: pupils equal, sclerae anicteric, moist MM RESP: normal WOB, CTAB CV: reg no mrg ABD: soft/nt/nd +BT. Some L CVA tenderness : no burks SKIN: warm and dry, no generalized rashes NEURO: AOx person, place, and situation. Face symmetric, speech normal, moves 4 ext spontaneously and equally Results & Data Results & Data Vital Signs (Past 12 Hours) Vital Signs Temp Pulse Resp BP Pulse Ox O2 Del Method 05/17/25 14:21 36.7 C 80 16 116/79 98 Room Air 05/17/25 07:10 36.8 C 63 17 123/77 99 Room Air PG Care Time/CCT Total # of Minutes Spent Total Time Spent with Patient: Total time spent is greater than 50% in coordination of care (as documented) at patient's floor/unit and/or counseling patient: Coding Level of Care Code 04573 SUB INP/OBS CARE MIN Diagnoses Left ureteral stone N20.1 Hydronephrosis, left N13.30 Asthma J45.909
[2025-05-18] MEDS: COUGH DROP (SUGAR FREE) LOZ 24 LOZ/1 BOX BUCCAL ONE (00:57)
[2025-05-18] MEDS: DICYCLOMINE HCL 10 MG CAP PO PRN (00:57)
[2025-05-18 07:14] LABS: Anion Gap 5.0 (3-11); Blood Urea Nitrogen 13.0 mg/dl (6-23); Calcium 9.5 mg/dl (8.6-10.3); Carbon Dioxide 30.0 mmol/L (21-32); Chloride 104.0 mmol/L (98-107); Creatinine Clr Calc Pharmacy 81.2 ml/min; Glucose 101.0 mg/dl (70-99(Fasting)); Potassium 4.0 mmol/L (3.5-5.1); Sodium 139.0 mmol/L (136-145)
[2025-05-18 07:36] VITALS: BP 108/71; PULSE 80; RESP 16; TEMP 97.5; O2SAT 97
--- NOTE | 2025-05-18 09:48 | Discharge Summary ---
Discharge Summary Date of Service May 18, 2025 Principal Dx & Hospital Course #1 = Principal Diagnosis (1) Left ureteral stone: (2) Hydronephrosis, left: (3) Asthma: Plan 34 y/o with hx nephrolithiasis admitted with obstructing L ureteral stone, having worsened despite conservative management #left ureteral stone CT abd/pelvis - 8 mm stone prox L ureter with mild L hydronephrosis. Urologist consulted -cystoscopy with stent placement with Dr. Lugo 05/16. proloned inpatient stay for pain control. Will need follow up for stone treatment. UA without signs of infection. Continue flomax, prn oxybuytinin and prn pyridium prescribed. -follow up with Dr. Harris for nephrolithiasis - reviewed her last clinic note and the main risk factor is low fluid intake / urine output, advised normal dietary calcium and increased oral fluids for now # Asthma - not in exacerbation -continue advair, recent dose increase Continue other home meds for mood disorder, arthritis pain, insomnia: gabapentin topamax duloxetine, bupropion lunesta dispo: discharge to home with urology follow up Notes For Next Care Provider Medication Changes From Visit prn oxybutyin prn pyridium Admission HPI Per Admitting Provider 34 y/o with nephrolithiasis came in to ED with renal colic. L flank pain started Monday. Seen at [facility], diagnosed with stone, and treated medically. Pain got worse today despite oral pain medicine so came in to ED. The ED consulted Urology who plans stenting procedure tomorrow. Pain is in left flank and severe. She had one emesis yesterday. Unrelieved by oral pain meds, but improved after 4 mg IV morphine. Not currently nauseated. Per my chart review: In 07/18 had laser lithotripsy of 10 mm L stone. She says no pain that time, presented with hematuria only Discharge Exam General: NAD, vitals as above, sitting up in bed appears well, eager to go home Pulm: breathing unlabored CV: well perfused extremities: moves all extremities Discharge Plan Discharge Items Patient Disposition: Home - Self-Care Reason For Visit: URETERAL STONE Discharge Diagnosis: kidney stone Condition on Discharge: Fair Activity: Resume your previous activity Non-emergency contact: Primary Care Provider and Urologist Call non-emergency contact if: you have any medication questions, your pain is not controlled and your temperature is above 101 Follow-up/Referrals: Chad Odom, [Physician] - (follow up for stone treatment ) Ned Iqbal MD [Primary Care Provider] - 05/21/25 4:00 pm Diet: Regular Addtl Attending Provider Instructions: Ms.. Mullins, You were hospitalized after having back pain found to be from kidney stones. You were seen by urology and taken to the OR to have a stent placed on 05/[address] Odom. Your urine was also concerning for infection so you have been started on antibiotics, these will be continued at discharge. You will need to follow up with urology for stent removal and stone treatment. Medication Changes/Recommendations: * Continue flomax daily while stent in place - this is to help with easier passage of urine * Pyridium as needed for pain with urination - this can cause your urine/feces to be discolored/orange * Pain control - can use tylenol and ibuprofen over the counter and oxycodone prn * oxybutyin was sent in as needed for bladder spasm It is normal to still have discomfort in the flank area while the stent is in place, this pain may be worse with movement. Blood tinged urine can also be common. If you are having persistent dark bloody urine or thick bloody urine for >8 hours please contact your urologist. It is important that you are staying hydrated while the stent is in place. The urology office should be contacting you to schedule and appointment. If you do not hear from them by Monday please contact them at [phone] Please contact the urologist if you have any uncontrolled pain, fevers > 100F, or inability to urinate. please follow up with Dr. Harris to continue to work to prevent further kidney stones. Return to ER with new or worsening symptoms. Pending Studies at Discharge: No Stand-Alone Forms: My [employer], Smoking Cessation Medications and DC Order Prescriptions: New oxybutynin chloride 5 mg tablet 5 mg PO Q12H PRN (Reason: bladder spasms) Qty: 10 0RF phenazopyridine [Pyridium] 100 mg tablet 100 mg PO PC PRN (Reason: pain) Qty: 6 0RF Continued ergocalciferol (vitamin D2) 50 mcg (2,000 unit) capsule 50 mcg PO QAM bupropion HCl 150 mg tablet extended release 24 hr 150 mg PO QAM topiramate 100 mg tablet 100 mg PO HS dicyclomine 10 mg capsule 10 mg PO TID PRN (Reason: Pain) celecoxib 200 mg capsule 200 mg PO QAM famotidine 20 mg tablet 20 mg PO BID PRN (Reason: Nausea and Heartburn) gabapentin 100 mg capsule 100 mg PO BID oxycodone 5 mg tablet 5 mg PO Q6H PRN (Reason: Pain) hydroxyzine pamoate 25 mg capsule 25 mg PO BID duloxetine 60 mg capsule,delayed release(DR/EC) 60 mg PO QAM fluticasone propion-salmeterol [Advair HFA] 115-21 mcg/actuation HFA aerosol inhaler 2 inh INHALATION BID tamsulosin [Flomax] 0.4 mg capsule 0.4 mg PO HS Rx Instructions: Start Date 05/14/25 x7 day supply modafinil 200 mg Tablet 200 mg PO QAM eszopiclone [Lunesta] 3 mg Tablet 3 mg PO HS Discharge Orders: Discharge Order (Routine); Ordered 05/18/25 Ordered By: Roseann Bird/Other Patient Handouts: Having a Ureteral Stent Admission Data Admit Date/Time: 05/15/25 16:08 Attending Provider: Diana Daugherty Admit Provider: Diana Daugherty Primary Care Provider: Ned Iqbal Other Providers: Joe Healy Hospital Stay Data Consultations 05/15/25 15:21 ED Decision to Admit Stat Procedures Performed Operation Date: 05/16/25 13:10 Actual Procedures p Cystoscopy, Left Retrograde Pyelogram, Left Ureteral Stent Placement(Left) - Familia Simon MD Diagnostic Imagining Performed 05/15/25 12:42 CT stones [CT abd pelvis wo con] Stat 05/16/25 FL retrograde includes kub Routine Pending Results Patient Have Any Pending Studies at Discharge: No Discharge Instructions Given to Patient (Per Discharging Provider) Ms.. Mullins, You were hospitalized after having back pain found to be from kidney stones. You were seen by urology and taken to the OR to have a stent placed on 05/[address] Odom. Your urine was also concerning for infection so you have been started on antibiotics, these will be continued at discharge. You will need to follow up with urology for stent removal and stone treatment. Medication Changes/Recommendations: * Continue flomax daily while stent in place - this is to help with easier passage of urine * Pyridium as needed for pain with urination - this can cause your urine/feces to be discolored/orange * Pain control - can use tylenol and ibuprofen over the counter and oxycodone prn * oxybutyin was sent in as needed for bladder spasm It is normal to still have discomfort in the flank area while the stent is in place, this pain may be worse with movement. Blood tinged urine can also be common. If you are having persistent dark bloody urine or thick bloody urine for >8 hours please contact your urologist. It is important that you are staying hydrated while the stent is in place. The urology office should be contacting you to schedule and appointment. If you do not hear from them by Monday please contact them at [phone] Please contact the urologist if you have any uncontrolled pain, fevers > 100F, or inability to urinate. please follow up with Dr. Harris to continue to work to prevent further kidney stones. Return to ER with new or worsening symptoms. Total Time Total Time Spent Total Time Spent (In Minutes): Time spent day of discharge 25 minutes including direct patient care, medication reconciliation, documentation, review of labs and images, and coordination of care. Coding Level of Care Code 23740 INP/OBS DISCH >30 MIN Diagnoses Left ureteral stone N20.1 Hydronephrosis, left N13.30 Asthma J45.909
== END 2025-05-18 11:11 | disposition home or self-care (01) ==
LOC: 3N 12:14 → ED 12:14 → 3N 16:54